=== PATIENT | female | born 1985 | race Caucasian/White ===

== ENCOUNTER 2016-09-30 15:27 | Emergency (ER) | payer OTHER ==
[2016-09-30] MEDS ORDERED: KETOROLAC 30 MG/ML VIAL (J1885) As Ordered ONE (18:52)
--- NOTE | 2016-09-30 19:40 | REPUSA ---
CLINICAL HISTORY: Abdominal pain. TECHNIQUE: Realtime sonographic images were obtained in multiple projections. COMMENTS: The liver is of normal size, parenchyma demonstrates normal echogenicity. No discrete hepatic mass is seen. There is no intra or extrahepatic biliary ductal dilatation. CBD measures 4 mm. The gallbladder is ph ysiologically distended without evidence of calculi. The gallbladder wall is not thickened and there is no pericholecystic fluid. There is no abdominal ascites. The right kidney measures 10.6 cm , free of hydronephrosis. IMPRESSION: Unremarkable study. Thank you for your kind referral of this patient.
[2016-09-30 20:46] LABS: BASO % 0.4 % (0.0-1.0); EOS # 0.2 K/mm3 (0.0-0.50); EOS % 3.7 % (0.0-3.0); LARGE UNSTAINED CELL # 0.1 K/mm3 (0.0-0.4); LYMPH # 1.8 K/mm3 (1.5-6.5); LYMPH % 33.5 % (24.0-44.0); MEAN CORPUSCULAR HEMOGLOBIN 27.7 pg (27.0-33.0); MEAN CORPUSCULAR HGB CONC 33.4 g/dl (32.0-36.5); MEAN CORPUSCULAR VOLUME 83.2 fl (80.0-96.0); MONO # 0.3 K/mm3 (0.0-0.8); MONO % 4.9 % (0.0-5.0); NEUTROPHILS % 55.5 % (36.0-66.0); PLATELET COUNT, AUTOMATED 187 k/mm3 (150-450); RED CELL DISTRIBUTION WIDTH 13.2 % (11.5-14.5); WHITE BLOOD COUNT 5.4 K/mm3 (4.0-10.0)
[2016-09-30 21:23] LABS: ALBUMIN 3.8 GM/DL (3.2-5.2); ALBUMIN/GLOBULIN RATIO 0.93 (1.00-1.93); ALKALINE PHOSPHATASE 80 U/L (45-117); ALT/SGPT 19 U/L (12-78); AMYLASE 58 U/L (25-115); ANION GAP 10 MEQ/L (8-16); AST/SGOT 15 U/L (15-37); BILIRUBIN,DIRECT < 0.1 MG/DL (0.0-0.2); BILIRUBIN,TOTAL 0.3 MG/DL (0.2-1.0); BLOOD UREA NITROGEN 11 MG/DL (7-18); CALCIUM LEVEL 9.2 MG/DL (8.5-10.1); CARBON DIOXIDE LEVEL 26 MEQ/L (21-32); CHLORIDE LEVEL 108 MEQ/L (98-107); CREATININE FOR GFR 0.97 MG/DL (0.55-1.02); GLOMERULAR FILTRATION RATE > 60.0 (>60); GLUCOSE, FASTING 68 MG/DL (70-105); POTASSIUM SERUM 3.8 MEQ/L (3.5-5.1); SODIUM LEVEL 144 MEQ/L (136-145); TOTAL PROTEIN 7.9 GM/DL (6.4-8.2)
[2016-09-30] MEDS ORDERED: GI COCKTAIL 50ML BTL(HYOSCYAMINE/MAALOX/LIDOCAINE VISCOUS)(1:3:1) As Ordered ONE (21:40)
--- NOTE | 2016-09-30 22:34 | EDDOCDS ---
Physician Documentation [facility] Name: Elida Scott Age: 31 yrs Sex: Female : 1985 Arrival Date: 09/30/2016 Time: 15:27 Bed I Private MD: NO PRIMARY PHYSICIAN, . Disposition: 09/30/16 22:11 Discharged to Home/Self Care. Impression: Upper abdominal pain, unspecified, Acute gastritis. - Condition is Stable. - Discharge Instructions: Abdominal Pain, Adult, Gastritis, Adult. - Prescriptions for Prilosec 20 mg Oral Capsule - take 1 capsule by ORAL route once daily; 10 capsule. - Medication Reconciliation, Local Pharmacy Hours form. - [facility]; When: 2 - 3 days; Reason: Recheck today's complaints, Continuance of care. - Problem is new. - Symptoms have improved. - Notes: USE MEDICATIN INSTRUTCED, FOLLOW UP WITH YOUR DOCTOR, RETURN TO THE ER IF THE SYMPTOMS WORSEN OR BECOME CONCERNING Historical: - Allergies: no known allergies; - Home Meds: 1. bupropion HCl 300 mg Oral Tb24 1 tab once daily (Last dose: 09/30/2016) 2. Zepatier 50-100 mg oral tab 1 tab once daily (Last dose: 09/30/2016) - PMHx: Hep C; - PSHx: ; Right wrist tendon repair; - Social history: Smoking status: Patient states former smoker of tobacco. No barriers to communication noted, The patient speaks fluent [place] Leonean. - Family history: Not pertinent. - : The pt / caregiver states he / she is not on anticoagulants. Home medication list is obtained from the patient. - Exposure Risk Screening:: None identified. 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 5 in. (165.10 cm) (R); Pain 6/10; 20:34 BP 112 / 65; Pulse 68; Resp 18; Temp 97.8; Pulse Ox 99% ; ajs 22:31 BP 101 / 64; Pulse 53; Resp 18; Temp 97.3; Pulse Ox 97% ; Pain 0/10; ajs 15:29 Body Mass Index 31.62 (86.18 kg, 165.10 cm) gr2 MDM: 18:28 Undress patient appropriately for examination ordered. ck7 18:28 UCG by Nursing ordered. ck7 18:28 IV Saline Lock ordered. ck7 18:28 NS 0.9% 1000 ml IV at bolus once ordered. ck7 18:28 ketorolac 30 mg IVP once ordered. ck7 18:30 Amylase Ordered. EDMS 18:30 Basic Metabolic Profile Ordered. EDMS 18:30 CBC with Diff Ordered. EDMS 18:30 Lipase Ordered. EDMS 18:30 Liver Profile Ordered. EDMS 18:30 Urinalysis Ordered. EDMS 18:30 Urine Culture Ordered. EDMS 18:30 US Gallbladder Ordered. EDMS 18:30 NOTHING BY MOUTH+DIET ordered. EDMS 18:33 Financial registration complete. ks16 18:33 [facility] Payment Agreement was scanned into [employer] and attached to record. ks16 20:34 Urinalysis Reviewed. ck7 20:34 US Gallbladder Reviewed. ck7 21:34 Basic Metabolic Profile Reviewed. ck7 21:34 CBC with Diff Reviewed. ck7 21:34 Liver Profile Reviewed. ck7 21:34 Amylase Reviewed. ck7 21:34 Lipase Reviewed. ck7 21:38 GI Cocktail - (Alum-Mag Hydroxide-Simeth 30 ml, Lidocaine 10 ml, Hyoscyamine 10 ml) PO ck7 once; Pre-mixed 50mL unit dose ordered. Point of Care Testing: Urine : 18:46 hCG Reading: Negative; Control Reading: Positive; srm Ranges: Administered Medications: 19:13 Drug: NS 0.9% 1000 ml [sodium chloride 0.9 % intravenous solution] Route: IV; Rate: kc3 bolus; Site: right hand; 19:13 Drug: ketorolac 30 mg [ketorolac 30 mg/mL (1 mL) injection solution (1 mL)] Route: IVP; kc3 Site: right hand; 21:43 Drug: GI Cocktail - (Alum-Mag Hydroxide-Simeth Suspension 225 mg-200 mg-25 mg/5 mL 30 dsf ml, Lidocaine Liquid 2 % 10 ml, Hyoscyamine Liquid 10 ml) Route: PO; Signatures: Dispatcher [employer] Buzz Wilkins, RN RN dwg Karan Montague, RPA-C RPA-Cck7 Viky ArshadRN RN af2 Evelyn Rush RN RN kc3 Anay Kelley, Reg Reg ks16 Kamilah Chin RN dsf The chart was reviewed and I authenticate all verbal orders and agree with the evaluation and treatment provided.Attachments: 18:33 [facility] Payment Agreement ks16 MTDD
--- NOTE | 2016-09-30 22:34 | EDDOCDS ---
Nurse's Notes [facility] Name: Elida Scott Age: 31 yrs Sex: Female : 1985 Arrival Date: 09/30/2016 Time: 15:27 Bed I9 / Private MD: NO PRIMARY PHYSICIAN, . Diagnosis: Upper abdominal pain, unspecified;Acute gastritis Presentation: 09/30 15:33 Presenting complaint: Patient states: RUQ pain for one week. Adult Sepsis Screening: dwg The patient does not have new or worsening altered mentation. Patient's respiratory rate is less than 22. Systolic blood pressure is greater than 100. Patient has a qSOFA score of 0- Negative Sepsis Screen. Suicide/Homicide risk assessment- the patient denies having any suicidal and/or homicidal ideations and does not present with any other emotional, behavioral or mental health complaints. Status: Patient is not a branch service specialist or dependent. Transition of care: patient was not received from another setting of care. 15:33 Acuity: GABRIELA Level 3 dwg 15:33 Method Of Arrival: Walkin/Carried/Asstd dwg Triage Assessment: 15:35 General: Appears in no apparent distress. Pain: Pain currently is 3 out of 10 on a pain dwg scale. Pt Declines HIV testing. 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 bupropion HCl 300 mg Oral Tb24 1 tab once daily (Last dose: 09/30/2016) 2. Zepatier 50-100 mg oral tab 1 tab once daily (Last dose: 09/30/2016) - PMHx: Hep C; - PSHx: ; Right wrist tendon repair; - Social history: Smoking status: Patient states former smoker of tobacco. No barriers to communication noted, The patient speaks fluent [place] Islander. - Family history: Not pertinent. - : The pt / caregiver states he / she is not on anticoagulants. Home medication list is obtained from the patient. - Exposure Risk Screening:: None identified. Screenin:14 Screening information is obtained from the patient. Fall risk: No risks identified. kc3 Assistance ADL's: requires no assistance with activities of daily living. Abuse/DV Screen: The patient / caregiver reports he/she is: not in a situation that causes fear, pain or injury. Nutritional screening: No deficits noted. Advance Directives: Currently, there is no health care proxy. home support is adequate. Assessment: 19:14 General: Appears in no apparent distress, comfortable, Behavior is appropriate for age, kc3 cooperative. Pain: Location: epigastric area. Neurological: Level of Consciousness is awake, alert, obeys commands, Oriented to person, place, time. Respiratory: Respiratory effort is even, unlabored. GI: Abdomen is flat, Bowel sounds present X 4 quads. Derm: Skin is pink, warm & dry. Musculoskeletal: Circulation, motion, and sensation intact. 20:00 General: Appears in no apparent distress, comfortable, Behavior is appropriate for age, kc3 cooperative. Pain: Location: epigastric area. Neurological: Level of Consciousness is awake, alert, obeys commands, Oriented to person, place, time. Respiratory: Respiratory effort is even, unlabored. Derm: Skin is pink, warm & dry. Musculoskeletal: Circulation, motion, and sensation intact. 21:19 General: Appears in no apparent distress, comfortable, Behavior is appropriate for age, kc3 cooperative. Neurological: Level of Consciousness is awake, alert, obeys commands, Oriented to person, place, time. Respiratory: Respiratory effort is even, unlabored. Derm: Skin is pink, warm & dry. Musculoskeletal: Circulation, motion, and sensation intact. 21:43 Adult Sepsis Screening: The patient does not have new or worsening altered mentation. dsf Patient's respiratory rate is less than 22. Systolic blood pressure is greater than 100. Patient has a qSOFA score of 0- Negative Sepsis Screen. General: Appears in no apparent distress, comfortable, Behavior is appropriate for age, cooperative. Pain: Location: epigastric area Pain currently is 3 out of 10 on a pain scale. Neurological: Level of Consciousness is awake, alert. Cardiovascular: Capillary refill < 3 seconds. Respiratory: Airway is patent Respiratory effort is even, unlabored, Respiratory pattern is regular, symmetrical. GI: Abdomen is non- distended. Derm: Skin is pink, warm & dry. Vital Signs: 15:29 BP 109 / 60; Pulse 65; Resp 18 S; Temp 98.0(O); Pulse Ox 99% on R/A; Weight 86.18 kg gr2 (R); Height 5 ft. 5 in. (165.10 cm) (R); Pain 6/10; 20:34 BP 112 / 65; Pulse 68; Resp 18; Temp 97.8; Pulse Ox 99% ; ajs 22:31 BP 101 / 64; Pulse 53; Resp 18; Temp 97.3; Pulse Ox 97% ; Pain 0/10; ajs 15:29 Body Mass Index 31.62 (86.18 kg, 165.10 cm) gr2 Vitals: 15:29 Log In Time: September 30, 2016 at 15:29. gr2 ED Course: 15:29 Patient visited by Laura Interiano. gr2 15:29 NO PRIMARY PHYSICIAN, . is Private Physician. gr2 15:29 Patient moved to Waiting gr2 15:30 Patient visited by Laura Interiano. gr2 15:30 Patient moved to Pre RCE gr2 15:33 Triage Initiated dwg 17:46 Patient moved to Triage 3 srm 18:17 Karan Montague RPA-C is PHCP. ck7 18:17 Baljinder Gatica MD is Attending Physician. ck7 18:17 Patient visited by Karan Montague RPA-C. ck7 18:33 [facility] Payment Agreement was scanned into [employer] and attached to record. ks16 18:43 Patient moved to I mdr 18:53 Patient visited by Karan Montague RPA-C. ck7 18:54 Pt greeted and oriented to ED. Patient advised of names of staff involved in care, ajs location of call doshi, wait times and NPO status. Accompanied by Friend, Patient has correct armband on for positive identification. Placed in gown. Bed in low position. Call light in reach. Side rails up X 1. 18:55 Patient visited by Elida Moses. ajs 19:13 Amylase Sent. kc3 19:13 Basic Metabolic Profile Sent. kc3 19:13 CBC with Diff Sent. kc3 19:14 Lipase Sent. kc3 19:14 Liver Profile Sent. kc3 19:15 Patient visited by Evelyn Rush RN. kc3 19:15 The patient / caregiver is instructed regarding the plan of care and ED course. kc3 19:15 Inserted saline lock: 20 gauge in right hand and blood collected. The patient tolerated kc3 the procedure well. Labs drawn. (by ED staff). Sent per order to lab. 19:19 Patient moved to Ultrasound am17 19:30 Patient moved to I am17 19:57 Patient visited by Evelyn Rush RN. kc3 20:15 US Gallbladder Returned. EDMS 20:34 Patient visited by Elida Moses. ajs 21:07 Patient name changed from Elida\S\\S\Freelove\S\ to Elida\S\ \S\Freelove. EDMS 21:20 Patient visited by Evelyn Rush RN. kc3 21:44 Patient visited by Kamilah Chin RN. dsf 22:10 [facility] is Referral Physician. ck7 22:31 Patient visited by Elida Moses. ajs 22:31 No procedures done that require assistance. af2 22:31 Discontinued IV lock intact, bleeding controlled, pressure dressing applied, No af2 redness/swelling at site. Administered Medications: 19:13 Drug: NS 0.9% 1000 ml [sodium chloride 0.9 % intravenous solution] Route: IV; Rate: kc3 bolus; Site: right hand; 19:13 Drug: ketorolac 30 mg [ketorolac 30 mg/mL (1 mL) injection solution (1 mL)] Route: IVP; kc3 Site: right hand; 21:43 Drug: GI Cocktail - (Alum-Mag Hydroxide-Simeth Suspension 225 mg-200 mg-25 mg/5 mL 30 dsf ml, Lidocaine Liquid 2 % 10 ml, Hyoscyamine Liquid 10 ml) Route: PO; Point of Care Testing: Urine : 18:46 hCG Reading: Negative; Control Reading: Positive; srm Ranges: Order Results: Lab Order: Amylase; SPEC'M 09/30/16 18:57 Test: AMYLASE; Value: 58; Range: 25-115; Units: U/L; Status: F Lab Order: Basic Metabolic Profile; SPEC'M 09/30/16 18:57 Test: GLUCOSE, FASTING; Value: 68; Range: 70-105; Abnormal: Below low normal; Units: MG/DL; Status: F Test: BLOOD UREA NITROGEN; Value: 11; Range: 7-18; Units: MG/DL; Status: F Test: CREATININE FOR GFR; Value: 0.97; Range: 0.55-1.02; Units: MG/DL; Status: F Test: GLOMERULAR FILTRATION RATE; Value: > 60.0; Range: >60; Status: F Test: SODIUM LEVEL; Value: 144; Range: 136-145; Units: MEQ/L; Status: F Test: POTASSIUM SERUM; Value: 3.8; Range: 3.5-5.1; Units: MEQ/L; Status: F Test: CHLORIDE LEVEL; Value: 108; Range: 98-107; Abnormal: Above high normal; Units: MEQ/L; Status: F Test: CARBON DIOXIDE LEVEL; Value: 26; Range: 21-32; Units: MEQ/L; Status: F Test: ANION GAP; Value: 10; Range: 8-16; Units: MEQ/L; Status: F Test: CALCIUM LEVEL; Value: 9.2; Range: 8.5-10.1; Units: MG/DL; Status: F Test Note: ; Units are mL/min/1.73 m2 Chronic Kidney Disease Staging per NKF: Stage I & II GFR >=60 Normal to Mildly Decreased Stage III GFR 30-59 Moderately Decreased Stage IV GFR 15-29 Severely Decreased Stage V GFR <15 Very Little GFR Left ESRD GFR <15 on GEAR CHANGER Lab Order: CBC with Diff; SPEC'M 09/30/16 18:57 Test: WHITE BLOOD COUNT; Value: 5.4; Range: 4.0-10.0; Units: K/mm3; Status: F Test: RED BLOOD COUNT; Value: 4.79; Range: 4.00-5.40; Units: M/mm3; Status: F Test: HEMOGLOBIN; Value: 13.3; Range: 12.0-16.0; Units: g/dl; Status: F Test: HEMATOCRIT; Value: 39.8; Range: 36.0-47.0; Units: %; Status: F Test: MEAN CORPUSCULAR VOLUME; Value: 83.2; Range: 80.0-96.0; Units: fl; Status: F Test: MEAN CORPUSCULAR HEMOGLOBIN; Value: 27.7; Range: 27.0-33.0; Units: pg; Status: F Test: MEAN CORPUSCULAR HGB CONC; Value: 33.4; Range: 32.0-36.5; Units: g/dl; Status: F Test: RED CELL DISTRIBUTION WIDTH; Value: 13.2; Range: 11.5-14.5; Units: %; Status: F Test: PLATELET COUNT, AUTOMATED; Value: 187; Range: 150-450; Units: k/mm3; Status: F Test: NEUTROPHILS %; Value: 55.5; Range: 36.0-66.0; Units: %; Status: F Test: LYMPH %; Value: 33.5; Range: 24.0-44.0; Units: %; Status: F Test: MONO %; Value: 4.9; Range: 0.0-5.0; Units: %; Status: F Test: EOS %; Value: 3.7; Range: 0.0-3.0; Abnormal: Above high normal; Units: %; Status: F Test: BASO %; Value: 0.4; Range: 0.0-1.0; Units: %; Status: F Test: LARGE UNSTAINED CELL %; Value: 2.0; Range: 0.0-4.0; Units: %; Status: F Test: NEUTROPHILS #; Value: 3.0; Range: 1.8-7.7; Units: K/mm3; Status: F Test: LYMPH #; Value: 1.8; Range: 1.5-6.5; Units: K/mm3; Status: F Test: MONO #; Value: 0.3; Range: 0.0-0.8; Units: K/mm3; Status: F Test: EOS #; Value: 0.2; Range: 0.0-0.50; Units: K/mm3; Status: F Test: BASO #; Value: 0.0; Range: 0.0-0.2; Units: K/mm3; Status: F Test: LARGE UNSTAINED CELL #; Value: 0.1; Range: 0.0-0.4; Units: K/mm3; Status: F Lab Order: Lipase; SPEC'M 09/30/16 18:57 Test: LIPASE; Value: 154; Range: 73-393; Units: U/L; Status: F Lab Order: Liver Profile; SPEC'M 09/30/16 18:57 Test: AST/SGOT; Value: 15; Range: 15-37; Units: U/L; Status: F Test: ALT/SGPT; Value: 19; Range: 12-78; Units: U/L; Status: F Test: ALKALINE PHOSPHATASE; Value: 80; Range: 45-117; Units: U/L; Status: F Test: BILIRUBIN,TOTAL; Value: 0.3; Range: 0.2-1.0; Units: MG/DL; Status: F Test: BILIRUBIN,DIRECT; Value: < 0.1; Range: 0.0-0.2; Units: MG/DL; Status: F Test: TOTAL PROTEIN; Value: 7.9; Range: 6.4-8.2; Units: GM/DL; Status: F Test: ALBUMIN; Value: 3.8; Range: 3.2-5.2; Units: GM/DL; Status: F Test: ALBUMIN/GLOBULIN RATIO; Value: 0.93; Range: 1.00-1.93; Abnormal: Below low normal; Status: F Lab Order: Urinalysis; SPEC'M 09/30/16 18:41 Test: APPEARANCE, URINE; Value: CLEAR; Range: CLEAR; Status: F Test: COLOR, URINE; Value: YELLOW; Range: YELLOW; Status: F Test: PH,URINE; Value: 5.0; Range: 5.0-9.0; Units: UNITS; Status: F Test: SPECIFIC GRAVITY URINE AUTO; Value: 1.020; Range: 1.002-1.035; Status: F Test: PROTEIN, URINE AUTO; Value: NEGATIVE; Range: NEGATIVE; Units: mg/dL; Status: F Test: GLUCOSE, URINE (UA) AUTO; Value: NEGATIVE; Range: NEGATIVE; Units: mg/dL; Status: F Test: KETONE, URINE AUTO; Value: NEGATIVE; Range: NEGATIVE; Units: mg/dL; Status: F Test: UROBILINOGEN, URINE AUTO; Value: 0.2; Range: 0.0-2.0; Units: mg/dL; Status: F Test: BILIRUBIN, URINE AUTO; Value: NEGATIVE; Range: NEGATIVE; Status: F Test: NITRITE, URINE AUTO; Value: NEGATIVE; Range: NEGATIVE; Status: F Test: LEUKOCYTE ESTERASE, URINE AUTO; Value: NEGATIVE; Range: NEGATIVE; Status: F Test: BLOOD, URINE BLOOD; Value: NEGATIVE; Range: NEGATIVE; Status: F Test: WBC, URINE AUTO; Value: 1; Range: 0-3; Units: /HPF; Status: F Test: RBC, URINE AUTO; Value: 3; Range: 0-3; Units: /HPF; Status: F Test: BACTERIA, URINE AUTO; Value: NEGATIVE; Range: NEGATIVE; Status: F Test: SQUAMOUS EPITHELIAL CELL UR AU; Value: 1; Range: 0-6; Units: /HPF; Status: F Test: MUCUS, URINE; Value: SMALL; Range: NEGATIVE; Status: F Test: HYALINE CAST, URINE AUTO; Value: 0; Range: 0-1; Units: /LPF; Status: F Radiology Order: US Gallbladder Test: US Gallbladder REASON FOR EXAMINATION: Biliary Colic; ; CLINICAL HISTORY: Abdominal pain.; TECHNIQUE: Realtime sonographic images were obtained in multiple projections.; COMMENTS:; The liver is of normal size, parenchyma demonstrates normal echogenicity. No discrete hepatic mass is; seen.; There is no intra or extrahepatic biliary ductal dilatation. CBD measures 4 mm. The gallbladder is ph; ysiologically distended without evidence of calculi. The gallbladder wall is not thickened and there; is no pericholecystic fluid. There is no abdominal ascites.; The right kidney measures 10.6 cm , free of hydronephrosis.; IMPRESSION:; Unremarkable study.; Thank you for your kind referral of this patient.; ; Outcome: 22:11 Discharge ordered by Provider. ck7 22:31 Discharge Assessment: Patient awake, alert and oriented x 3. No cognitive and/or af2 functional deficits noted. Patient verbalized understanding of disposition instructions. patient administered narcotics - no. The following High Risk Discharge criteria are identified: None. Discharged to home ambulatory. Condition: stable. Discharge instructions given to patient, Instructed on discharge instructions, follow up and referral plans. medication usage, Demonstrated understanding of instructions, medications, Pt was receptive of discharge instructions/ teaching. Ultrasound Study completed. Property :Personal belongings accompany Pt. 22:33 Patient left the ED. af2 Signatures: Dispatcher [employer] EDBuzz Izaguirre RN RN dwg Michelson, Staci, RN RN srm Fuller, Desiree, RN RN dsf Slate, Amanda ajs Kwaczala, Christopher, JADYN-C RPA-Cck7 Laura Interiano gr2 Shelley Foster am17 Viky Arshad,RN RN af2 Michael Brewer, VACUUM APPLICATOR OPERATOR VACUUM APPLICATOR OPERATOR mdr Evelyn Rush,STEPHANY RN kc3 Anay Kelley, Reg Reg ks16 MTDD
--- NOTE | 2016-10-02 23:34 | EDDOCDS ---
Physician Documentation [facility] Name: Elida Scott Age: 31 yrs Sex: Female : 1985 Arrival Date: 09/30/2016 Time: 15:27 Bed I Private MD: NO PRIMARY PHYSICIAN, . Disposition: 09/30/16 22:11 Discharged to Home/Self Care. Impression: Upper abdominal pain, unspecified, Acute gastritis. - Condition is Stable. - Discharge Instructions: Abdominal Pain, Adult, Gastritis, Adult. - Prescriptions for Prilosec 20 mg Oral Capsule - take 1 capsule by ORAL route once daily; 10 capsule. - Medication Reconciliation, Local Pharmacy Hours form. - [facility]; When: 2 - 3 days; Reason: Recheck today's complaints, Continuance of care. - Problem is new. - Symptoms have improved. - Notes: USE MEDICATIN INSTRUTCED, FOLLOW UP WITH YOUR DOCTOR, RETURN TO THE ER IF THE SYMPTOMS WORSEN OR BECOME CONCERNING Historical: - Allergies: no known allergies; - Home Meds: 1. bupropion HCl 300 mg Oral Tb24 1 tab once daily (Last dose: 09/30/2016) 2. Zepatier 50-100 mg oral tab 1 tab once daily (Last dose: 09/30/2016) - PMHx: Hep C; - PSHx: ; Right wrist tendon repair; - Social history: Smoking status: Patient states former smoker of tobacco. No barriers to communication noted, The patient speaks fluent Ukrainian. - Family history: Not pertinent. - : The pt / caregiver states he / she is not on anticoagulants. Home medication list is obtained from the patient. - Exposure Risk Screening:: None identified. 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 5 in. (165.10 cm) (R); Pain 6/10; 20:34 BP 112 / 65; Pulse 68; Resp 18; Temp 97.8; Pulse Ox 99% ; ajs 22:31 BP 101 / 64; Pulse 53; Resp 18; Temp 97.3; Pulse Ox 97% ; Pain 0/10; ajs 15:29 Body Mass Index 31.62 (86.18 kg, 165.10 cm) gr2 MDM: 18:28 Undress patient appropriately for examination ordered. ck7 18:28 UCG by Nursing ordered. ck7 18:28 IV Saline Lock ordered. ck7 18:28 NS 0.9% 1000 ml IV at bolus once ordered. ck7 18:28 ketorolac 30 mg IVP once ordered. ck7 18:30 Amylase Ordered. EDMS 18:30 Basic Metabolic Profile Ordered. EDMS 18:30 CBC with Diff Ordered. EDMS 18:30 Lipase Ordered. EDMS 18:30 Liver Profile Ordered. EDMS 18:30 Urinalysis Ordered. EDMS 18:30 Urine Culture Ordered. EDMS 18:30 US Gallbladder Ordered. EDMS 18:30 NOTHING BY MOUTH+DIET ordered. EDMS 18:33 Financial registration complete. ks16 18:33 [facility] Payment Agreement was scanned into [employer] and attached to record. ks16 20:34 Urinalysis Reviewed. ck7 20:34 US Gallbladder Reviewed. ck7 21:34 Basic Metabolic Profile Reviewed. ck7 21:34 CBC with Diff Reviewed. ck7 21:34 Liver Profile Reviewed. ck7 21:34 Amylase Reviewed. ck7 21:34 Lipase Reviewed. ck7 21:38 GI Cocktail - (Alum-Mag Hydroxide-Simeth 30 ml, Lidocaine 10 ml, Hyoscyamine 10 ml) PO ck7 once; Pre-mixed 50mL unit dose ordered. 10/01 10:07 T-Sheet-- Draft Copy was scanned into [employer] and attached to record. Point of Care Testing: Urine : 09/30 18:46 hCG Reading: Negative; Control Reading: Positive; srm Ranges: Administered Medications: 19:13 Drug: NS 0.9% 1000 ml [sodium chloride 0.9 % intravenous solution] Route: IV; Rate: kc3 bolus; Site: right hand; 19:13 Drug: ketorolac 30 mg [ketorolac 30 mg/mL (1 mL) injection solution (1 mL)] Route: IVP; kc3 Site: right hand; 21:43 Drug: GI Cocktail - (Alum-Mag Hydroxide-Simeth Suspension 225 mg-200 mg-25 mg/5 mL 30 dsf ml, Lidocaine Liquid 2 % 10 ml, Hyoscyamine Liquid 10 ml) Route: PO; Signatures: Dispatcher [employer] Buzz Wilkins, RN RN dwg Anamaria Vargas, Reg Reg gb Karan Montague, RPA-C RPA-Cck7 Viky ArshadRN RN af2 Evelyn Rush,RN RN kc3 Anay Kelley, Reg Reg ks16 Kamilah Chin RN dsf The chart was reviewed and I authenticate all verbal orders and agree with the evaluation and treatment provided.Attachments: 18:33 [facility] Payment Agreement ks16 10/01 10:07 T-Sheet-- Draft Copy gb Chart Complete MTDD
--- NOTE | 2016-10-02 23:34 | EDDOCDS ---
Physician Documentation [facility] Name: Elida Scott Age: 31 yrs Sex: Female : 1985 Arrival Date: 09/30/2016 Time: 15:27 Bed I Private MD: NO PRIMARY PHYSICIAN, . Disposition: 09/30/16 22:11 Discharged to Home/Self Care. Impression: Upper abdominal pain, unspecified, Acute gastritis. - Condition is Stable. - Discharge Instructions: Abdominal Pain, Adult, Gastritis, Adult. - Prescriptions for Prilosec 20 mg Oral Capsule - take 1 capsule by ORAL route once daily; 10 capsule. - Medication Reconciliation, Local Pharmacy Hours form. - [facility] up: [facility]; When: 2 - 3 days; Reason: Recheck today's complaints, Continuance of care. - Problem is new. - Symptoms have improved. - Notes: USE MEDICATIN INSTRUTCED, FOLLOW UP WITH YOUR DOCTOR, RETURN TO THE ER IF THE SYMPTOMS WORSEN OR BECOME CONCERNING Historical: - Allergies: no known allergies; - Home Meds: 1. bupropion HCl 300 mg Oral Tb24 1 tab once daily (Last dose: 09/30/2016) 2. Zepatier 50-100 mg oral tab 1 tab once daily (Last dose: 09/30/2016) - PMHx: Hep C; - PSHx: ; Right wrist tendon repair; - Social history: Smoking status: Patient states former smoker of tobacco. No barriers to communication noted, The patient speaks fluent Thai. - Family history: Not pertinent. - : The pt / caregiver states he / she is not on anticoagulants. Home medication list is obtained from the patient. - Exposure Risk Screening:: None identified. COMPLIANCE ADMINISTRATOR: 09/30 15:35 LMP 09/29/2016 [facility] Vital Signs: 15:29 BP 109 / 60; Pulse 65; Resp 18 S; Temp 98.0(O); Pulse Ox 99% on R/A; Weight 86.18 kg / gr2 189.99 lbs (R); Height 5 ft. 5 in. (165.10 cm) (R); Pain 6/10; 20:34 BP 112 / 65; Pulse 68; Resp 18; Temp 97.8; Pulse Ox 99% ; ajs 22:31 BP 101 / 64; Pulse 53; Resp 18; Temp 97.3; Pulse Ox 97% ; Pain 0/10; ajs 15:29 Body Mass Index 31.62 (86.18 kg, 165.10 cm) gr2 MDM: 18:28 Undress patient appropriately for examination ordered. ck7 18:28 UCG by Nursing ordered. ck7 18:28 IV Saline Lock ordered. ck7 18:28 NS 0.9% 1000 ml IV at bolus once ordered. ck7 18:28 ketorolac 30 mg IVP once ordered. ck7 18:30 Amylase Ordered. EDMS 18:30 Basic Metabolic Profile Ordered. EDMS 18:30 CBC with Diff Ordered. EDMS 18:30 Lipase Ordered. EDMS 18:30 Liver Profile Ordered. EDMS 18:30 Urinalysis Ordered. EDMS 18:30 Urine Culture Ordered. EDMS 18:30 US Gallbladder Ordered. EDMS 18:30 NOTHING BY MOUTH+DIET ordered. EDMS 18:33 Financial registration complete. ks16 18:33 [facility] Payment Agreement was scanned into [employer] and attached to record. ks16 20:34 Urinalysis Reviewed. ck7 20:34 US Gallbladder Reviewed. ck7 21:34 Basic Metabolic Profile Reviewed. ck7 21:34 CBC with Diff Reviewed. ck7 21:34 Liver Profile Reviewed. ck7 21:34 Amylase Reviewed. ck7 21:34 Lipase Reviewed. ck7 21:38 GI Cocktail - (Alum-Mag Hydroxide-Simeth 30 ml, Lidocaine 10 ml, Hyoscyamine 10 ml) PO ck7 once; Pre-mixed 50mL unit dose ordered. 10/01 10:07 T-Sheet-- Draft Copy was scanned into [employer] and attached to record. Point of Care Testing: Urine : 09/30 18:46 hCG Reading: Negative; Control Reading: Positive; srm Ranges: Administered Medications: 19:13 Drug: NS 0.9% 1000 ml [sodium chloride 0.9 % intravenous solution] Route: IV; Rate: kc3 bolus; Site: right hand; 19:13 Drug: ketorolac 30 mg [ketorolac 30 mg/mL (1 mL) injection solution (1 mL)] Route: IVP; kc3 Site: right hand; 21:43 Drug: GI Cocktail - (Alum-Mag Hydroxide-Simeth Suspension 225 mg-200 mg-25 mg/5 mL 30 dsf ml, Lidocaine Liquid 2 % 10 ml, Hyoscyamine Liquid 10 ml) Route: PO; Signatures: Dispatcher [employer] Buzz Wilkins, RN RN dwg Anamaria Vargas, Reg Reg gb Karan Montague, RPA-C RPA-Cck7 Viky ArshadRN RN af2 Evelyn Rush,RN RN kc3 Anay Kelley, Reg Reg ks16 Kamilah Chin RN dsf The chart was reviewed and I authenticate all verbal orders and agree with the evaluation and treatment provided.Attachments: 18:33 [facility] Payment Agreement [email or web address] 10/01 10:07 T-Sheet-- Draft Copy gb Chart Complete MTDD
--- NOTE | 2016-10-02 23:34 | EDDOCDS ---
Nurse's Notes [facility] Name: Elida Scott Age: 31 yrs Sex: Female : 1985 Arrival Date: 09/30/2016 Time: 15:27 Bed I9 / Private MD: NO PRIMARY PHYSICIAN, . Diagnosis: Upper abdominal pain, unspecified;Acute gastritis Presentation: 09/30 15:33 Presenting complaint: Patient states: RUQ pain for one week. Adult Sepsis Screening: dwg The patient does not have new or worsening altered mentation. Patient's respiratory rate is less than 22. Systolic blood pressure is greater than 100. Patient has a qSOFA score of 0- Negative Sepsis Screen. Suicide/Homicide risk assessment- the patient denies having any suicidal and/or homicidal ideations and does not present with any other emotional, behavioral or mental health complaints. Status: Patient is not a resident services director or dependent. Transition of care: patient was not received from another setting of care. 15:33 Acuity: GABRIELA Level 3 dwg 15:33 Method Of Arrival: Walkin/Carried/Asstd dwg Triage Assessment: 15:35 General: Appears in no apparent distress. Pain: Pain currently is 3 out of 10 on a pain dwg scale. Pt Declines HIV testing. RETREAD SUPERVISOR: 15:35 LMP 09/29/2016 dwg Historical: - Allergies: no known allergies; - Home Meds: 1. bupropion HCl 300 mg Oral Tb24 1 tab once daily (Last dose: 09/30/2016) 2. Zepatier 50-100 mg oral tab 1 tab once daily (Last dose: 09/30/2016) - PMHx: Hep C; - PSHx: ; Right wrist tendon repair; - Social history: Smoking status: Patient states former smoker of tobacco. No barriers to communication noted, The patient speaks fluent Wallisian. - Family history: Not pertinent. - : The pt / caregiver states he / she is not on anticoagulants. Home medication list is obtained from the patient. - Exposure Risk Screening:: None identified. Screenin:14 Screening information is obtained from the patient. Fall risk: No risks identified. kc3 Assistance ADL's: requires no assistance with activities of daily living. Abuse/DV Screen: The patient / caregiver reports he/she is: not in a situation that causes fear, pain or injury. Nutritional screening: No deficits noted. Advance Directives: Currently, there is no health care proxy. home support is adequate. Assessment: 19:14 General: Appears in no apparent distress, comfortable, Behavior is appropriate for age, kc3 cooperative. Pain: Location: epigastric area. Neurological: Level of Consciousness is awake, alert, obeys commands, Oriented to person, place, time. Respiratory: Respiratory effort is even, unlabored. GI: Abdomen is flat, Bowel sounds present X 4 quads. Derm: Skin is pink, warm & dry. Musculoskeletal: Circulation, motion, and sensation intact. 20:00 General: Appears in no apparent distress, comfortable, Behavior is appropriate for age, kc3 cooperative. Pain: Location: epigastric area. Neurological: Level of Consciousness is awake, alert, obeys commands, Oriented to person, place, time. Respiratory: Respiratory effort is even, unlabored. Derm: Skin is pink, warm & dry. Musculoskeletal: Circulation, motion, and sensation intact. 21:19 General: Appears in no apparent distress, comfortable, Behavior is appropriate for age, kc3 cooperative. Neurological: Level of Consciousness is awake, alert, obeys commands, Oriented to person, place, time. Respiratory: Respiratory effort is even, unlabored. Derm: Skin is pink, warm & dry. Musculoskeletal: Circulation, motion, and sensation intact. 21:43 Adult Sepsis Screening: The patient does not have new or worsening altered mentation. dsf Patient's respiratory rate is less than 22. Systolic blood pressure is greater than 100. Patient has a qSOFA score of 0- Negative Sepsis Screen. General: Appears in no apparent distress, comfortable, Behavior is appropriate for age, cooperative. Pain: Location: epigastric area Pain currently is 3 out of 10 on a pain scale. Neurological: Level of Consciousness is awake, alert. Cardiovascular: Capillary refill < 3 seconds. Respiratory: Airway is patent Respiratory effort is even, unlabored, Respiratory pattern is regular, symmetrical. GI: Abdomen is non- distended. Derm: Skin is pink, warm & dry. Vital Signs: 15:29 BP 109 / 60; Pulse 65; Resp 18 S; Temp 98.0(O); Pulse Ox 99% on R/A; Weight 86.18 kg gr2 (R); Height 5 ft. 5 in. (165.10 cm) (R); Pain 6/10; 20:34 BP 112 / 65; Pulse 68; Resp 18; Temp 97.8; Pulse Ox 99% ; ajs 22:31 BP 101 / 64; Pulse 53; Resp 18; Temp 97.3; Pulse Ox 97% ; Pain 0/10; ajs 15:29 Body Mass Index 31.62 (86.18 kg, 165.10 cm) gr2 Vitals: 15:29 Log In Time: September 30, 2016 at 15:29. gr2 ED Course: 15:29 Patient visited by Laura Interiano. gr2 15:29 NO PRIMARY PHYSICIAN, . is Private Physician. gr2 15:29 Patient moved to Waiting gr2 15:30 Patient visited by Laura Interiano. gr2 15:30 Patient moved to Pre RCE gr2 15:33 Triage Initiated dwg 17:46 Patient moved to Triage 3 srm 18:17 Karan Montague RPA-C is PHCP. ck7 18:17 Baljinder Gatica MD is Attending Physician. ck7 18:17 Patient visited by Karan Montague RPA-C. ck7 18:33 [facility] Payment Agreement was scanned into [employer] and attached to record. ks16 18:43 Patient moved to I mdr 18:53 Patient visited by Karan Montague RPA-C. ck7 18:54 Pt greeted and oriented to ED. Patient advised of names of staff involved in care, ajs location of call doshi, wait times and NPO status. Accompanied by Friend, Patient has correct armband on for positive identification. Placed in gown. Bed in low position. Call light in reach. Side rails up X 1. 18:55 Patient visited by Elida Moses. ajs 19:13 Amylase Sent. kc3 19:13 Basic Metabolic Profile Sent. kc3 19:13 CBC with Diff Sent. kc3 19:14 Lipase Sent. kc3 19:14 Liver Profile Sent. kc3 19:15 Patient visited by Evelyn Rush RN. kc3 19:15 The patient / caregiver is instructed regarding the plan of care and ED course. kc3 19:15 Inserted saline lock: 20 gauge in right hand and blood collected. The patient tolerated kc3 the procedure well. Labs drawn. (by ED staff). Sent per order to lab. 19:19 Patient moved to Ultrasound am17 19:30 Patient moved to I am17 19:57 Patient visited by Evelyn Rush RN. kc3 20:15 US Gallbladder Returned. EDMS 20:34 Patient visited by Elida Moses. ajs 21:07 Patient name changed from Elida\S\\S\Freelove\S\ to Elida\S\ \S\Freelove. EDMS 21:20 Patient visited by Evelyn Rush RN. kc3 21:44 Patient visited by Kamilah Chin RN. dsf 22:10 [facility] is Referral Physician. ck7 22:31 Patient visited by Elida Moses. ajs 22:31 No procedures done that require assistance. af2 22:31 Discontinued IV lock intact, bleeding controlled, pressure dressing applied, No af2 redness/swelling at site. 10/01 10:07 T-Sheet-- Draft Copy was scanned into [employer] and attached to record. gb Administered Medications: 09/30 19:13 Drug: NS 0.9% 1000 ml [sodium chloride 0.9 % intravenous solution] Route: IV; Rate: kc3 bolus; Site: right hand; 19:13 Drug: ketorolac 30 mg [ketorolac 30 mg/mL (1 mL) injection solution (1 mL)] Route: IVP; kc3 Site: right hand; 21:43 Drug: GI Cocktail - (Alum-Mag Hydroxide-Simeth Suspension 225 mg-200 mg-25 mg/5 mL 30 dsf ml, Lidocaine Liquid 2 % 10 ml, Hyoscyamine Liquid 10 ml) Route: PO; Point of Care Testing: Urine : 18:46 hCG Reading: Negative; Control Reading: Positive; srm Ranges: Order Results: Lab Order: Amylase; SPEC'M 09/30/16 18:57 Test: AMYLASE; Value: 58; Range: 25-115; Units: U/L; Status: F Lab Order: Basic Metabolic Profile; SPEC'M 09/30/16 18:57 Test: GLUCOSE, FASTING; Value: 68; Range: 70-105; Abnormal: Below low normal; Units: MG/DL; Status: F Test: BLOOD UREA NITROGEN; Value: 11; Range: 7-18; Units: MG/DL; Status: F Test: CREATININE FOR GFR; Value: 0.97; Range: 0.55-1.02; Units: MG/DL; Status: F Test: GLOMERULAR FILTRATION RATE; Value: > 60.0; Range: >60; Status: F Test: SODIUM LEVEL; Value: 144; Range: 136-145; Units: MEQ/L; Status: F Test: POTASSIUM SERUM; Value: 3.8; Range: 3.5-5.1; Units: MEQ/L; Status: F Test: CHLORIDE LEVEL; Value: 108; Range: 98-107; Abnormal: Above high normal; Units: MEQ/L; Status: F Test: CARBON DIOXIDE LEVEL; Value: 26; Range: 21-32; Units: MEQ/L; Status: F Test: ANION GAP; Value: 10; Range: 8-16; Units: MEQ/L; Status: F Test: CALCIUM LEVEL; Value: 9.2; Range: 8.5-10.1; Units: MG/DL; Status: F Test Note: ; Units are mL/min/1.73 m2 Chronic Kidney Disease Staging per NKF: Stage I & II GFR >=60 Normal to Mildly Decreased Stage III GFR 30-59 Moderately Decreased Stage IV GFR 15-29 Severely Decreased Stage V GFR <15 Very Little GFR Left ESRD GFR <15 on MAINTENANCE TECHNICIAN 2ND SHIFT Lab Order: CBC with Diff; SPEC'M 09/30/16 18:57 Test: WHITE BLOOD COUNT; Value: 5.4; Range: 4.0-10.0; Units: K/mm3; Status: F Test: RED BLOOD COUNT; Value: 4.79; Range: 4.00-5.40; Units: M/mm3; Status: F Test: HEMOGLOBIN; Value: 13.3; Range: 12.0-16.0; Units: g/dl; Status: F Test: HEMATOCRIT; Value: 39.8; Range: 36.0-47.0; Units: %; Status: F Test: MEAN CORPUSCULAR VOLUME; Value: 83.2; Range: 80.0-96.0; Units: fl; Status: F Test: MEAN CORPUSCULAR HEMOGLOBIN; Value: 27.7; Range: 27.0-33.0; Units: pg; Status: F Test: MEAN CORPUSCULAR HGB CONC; Value: 33.4; Range: 32.0-36.5; Units: g/dl; Status: F Test: RED CELL DISTRIBUTION WIDTH; Value: 13.2; Range: 11.5-14.5; Units: %; Status: F Test: PLATELET COUNT, AUTOMATED; Value: 187; Range: 150-450; Units: k/mm3; Status: F Test: NEUTROPHILS %; Value: 55.5; Range: 36.0-66.0; Units: %; Status: F Test: LYMPH %; Value: 33.5; Range: 24.0-44.0; Units: %; Status: F Test: MONO %; Value: 4.9; Range: 0.0-5.0; Units: %; Status: F Test: EOS %; Value: 3.7; Range: 0.0-3.0; Abnormal: Above high normal; Units: %; Status: F Test: BASO %; Value: 0.4; Range: 0.0-1.0; Units: %; Status: F Test: LARGE UNSTAINED CELL %; Value: 2.0; Range: 0.0-4.0; Units: %; Status: F Test: NEUTROPHILS #; Value: 3.0; Range: 1.8-7.7; Units: K/mm3; Status: F Test: LYMPH #; Value: 1.8; Range: 1.5-6.5; Units: K/mm3; Status: F Test: MONO #; Value: 0.3; Range: 0.0-0.8; Units: K/mm3; Status: F Test: EOS #; Value: 0.2; Range: 0.0-0.50; Units: K/mm3; Status: F Test: BASO #; Value: 0.0; Range: 0.0-0.2; Units: K/mm3; Status: F Test: LARGE UNSTAINED CELL #; Value: 0.1; Range: 0.0-0.4; Units: K/mm3; Status: F Lab Order: Lipase; SPEC'M 09/30/16 18:57 Test: LIPASE; Value: 154; Range: 73-393; Units: U/L; Status: F Lab Order: Liver Profile; SPEC'M 09/30/16 18:57 Test: AST/SGOT; Value: 15; Range: 15-37; Units: U/L; Status: F Test: ALT/SGPT; Value: 19; Range: 12-78; Units: U/L; Status: F Test: ALKALINE PHOSPHATASE; Value: 80; Range: 45-117; Units: U/L; Status: F Test: BILIRUBIN,TOTAL; Value: 0.3; Range: 0.2-1.0; Units: MG/DL; Status: F Test: BILIRUBIN,DIRECT; Value: < 0.1; Range: 0.0-0.2; Units: MG/DL; Status: F Test: TOTAL PROTEIN; Value: 7.9; Range: 6.4-8.2; Units: GM/DL; Status: F Test: ALBUMIN; Value: 3.8; Range: 3.2-5.2; Units: GM/DL; Status: F Test: ALBUMIN/GLOBULIN RATIO; Value: 0.93; Range: 1.00-1.93; Abnormal: Below low normal; Status: F Lab Order: Urinalysis; SPEC'M 09/30/16 18:41 Test: APPEARANCE, URINE; Value: CLEAR; Range: CLEAR; Status: F Test: COLOR, URINE; Value: YELLOW; Range: YELLOW; Status: F Test: PH,URINE; Value: 5.0; Range: 5.0-9.0; Units: UNITS; Status: F Test: SPECIFIC GRAVITY URINE AUTO; Value: 1.020; Range: 1.002-1.035; Status: F Test: PROTEIN, URINE AUTO; Value: NEGATIVE; Range: NEGATIVE; Units: mg/dL; Status: F Test: GLUCOSE, URINE (UA) AUTO; Value: NEGATIVE; Range: NEGATIVE; Units: mg/dL; Status: F Test: KETONE, URINE AUTO; Value: NEGATIVE; Range: NEGATIVE; Units: mg/dL; Status: F Test: UROBILINOGEN, URINE AUTO; Value: 0.2; Range: 0.0-2.0; Units: mg/dL; Status: F Test: BILIRUBIN, URINE AUTO; Value: NEGATIVE; Range: NEGATIVE; Status: F Test: NITRITE, URINE AUTO; Value: NEGATIVE; Range: NEGATIVE; Status: F Test: LEUKOCYTE ESTERASE, URINE AUTO; Value: NEGATIVE; Range: NEGATIVE; Status: F Test: BLOOD, URINE BLOOD; Value: NEGATIVE; Range: NEGATIVE; Status: F Test: WBC, URINE AUTO; Value: 1; Range: 0-3; Units: /HPF; Status: F Test: RBC, URINE AUTO; Value: 3; Range: 0-3; Units: /HPF; Status: F Test: BACTERIA, URINE AUTO; Value: NEGATIVE; Range: NEGATIVE; Status: F Test: SQUAMOUS EPITHELIAL CELL UR AU; Value: 1; Range: 0-6; Units: /HPF; Status: F Test: MUCUS, URINE; Value: SMALL; Range: NEGATIVE; Status: F Test: HYALINE CAST, URINE AUTO; Value: 0; Range: 0-1; Units: /LPF; Status: F Lab Order: Urine Culture; SPEC'M 09/30/16 18:41 Test: URINE CULTURE; Value: URINE CULTURE RESULT; Status: F Test: URINE CULTURE; Value: NO GROWTH CLINICAL SIGNIFICANCE 2 OR MORE ORGANISMS; Status: F Radiology Order: US Gallbladder Test: US Gallbladder REASON FOR EXAMINATION: Biliary Colic; ; CLINICAL HISTORY: Abdominal pain.; TECHNIQUE: Realtime sonographic images were obtained in multiple projections.; COMMENTS:; The liver is of normal size, parenchyma demonstrates normal echogenicity. No discrete hepatic mass is; seen.; There is no intra or extrahepatic biliary ductal dilatation. CBD measures 4 mm. The gallbladder is ph; ysiologically distended without evidence of calculi. The gallbladder wall is not thickened and there; is no pericholecystic fluid. There is no abdominal ascites.; The right kidney measures 10.6 cm , free of hydronephrosis.; IMPRESSION:; Unremarkable study.; Thank you for your kind referral of this patient.; ; Outcome: 22:11 Discharge ordered by Provider. ck7 22:31 Discharge Assessment: Patient awake, alert and oriented x 3. No cognitive and/or af2 functional deficits noted. Patient verbalized understanding of disposition instructions. patient administered narcotics - no. The following High Risk Discharge criteria are identified: None. Discharged to home ambulatory. Condition: stable. Discharge instructions given to patient, Instructed on discharge instructions, follow up and referral plans. medication usage, Demonstrated understanding of instructions, medications, Pt was receptive of discharge instructions/ teaching. Ultrasound Study completed. Property :Personal belongings accompany Pt. 22:33 Patient left the ED. af2 Signatures: Dispatcher [employer] EDMS Buzz Espitia, RN RN rubéng Ginger Benito, RN RN [facility] Anamaria Vargas, Reg Reg gb Elsy,Kamilah,RN RN dsf Elida Moses Christopher, RPA-C RPA-Cck7 Laura Interiano gr2 Shelley Foster am17 Viky ArshadRN RN af2 Michael Brewer, JESSENIA SUPERVISOR LOADING mdr Evelyn Rush,RN RN jose3 Anay Kelley, Reg Reg ks16 Chart Complete MTDD
== END 2016-09-30 22:33 | disposition home or self-care (01) ==
LOC: M ED 15:27
DX: R10.10 Upper abdominal pain, unspecified (principal); K29.70 Gastritis, unspecified, without bleeding; Z86.19 Personal history of other infectious and parasitic diseases; Z87.891 Personal history of nicotine dependence; Z79.899 Other long term (current) drug therapy

== ENCOUNTER → 2016-09-30 | Outpatient (REF) | payer OTHER ==
[2016-09-30 16:24] LABS: ALBUMIN 3.6 GM/DL (3.2-5.2); ALBUMIN/GLOBULIN RATIO 1.06 (1.00-1.93); ALKALINE PHOSPHATASE 69 U/L (45-117); ALT/SGPT 16 U/L (12-78); AST/SGOT 10 U/L (15-37); BILIRUBIN,DIRECT < 0.1 MG/DL (0.0-0.2); BILIRUBIN,TOTAL 0.3 MG/DL (0.2-1.0)
== END ==
LOC: M SFHCPLAZ 11:36
PROVIDERS: ATTEND Internal Medicine Infectious Disease
DX: B18.2 Chronic viral hepatitis C (principal)

== ENCOUNTER → 2016-10-10 | Outpatient (CLI) | payer OTHER ==
--- NOTE | 2016-10-10 08:59 | REP ---
Right upper quadrant sonography: History: Hepatitis C, chronic. The Comparison study: Comparison sonography September 30, 2016. Findings: Scanning through the right upper quadrant of the abdomen demonstrates a normal sized, thin-walled gallbladder without evidence of stone or polyp. Common bile duct is normal measuring 0.2 cm in greatest diameter. No focal liver lesion is seen. Liver size is normal. No pancreatic abnormality is observed. No right renal abnormality is seen. There is no evidence of ascites. The right kidney measures 10.7 x 5.3 x 4.5 cm. Impression: Negative right upper quadrant sonography. No change from the study done September 30, 2016. Signed by Alli Pires MD 10/10/2016 08:50 A
== END ==
LOC: M RAD 08:18
PROVIDERS: ATTEND Internal Medicine Infectious Disease
DX: B18.2 Chronic viral hepatitis C (principal)

== ENCOUNTER → 2016-10-15 | Outpatient (CLI) | payer OTHER ==
--- NOTE | 2016-10-15 11:32 | REP ---
Hepatobiliary scan and gallbladder ejection fraction: History: Right upper quadrant pain. Technique: 6.2 mCi of technetium-99m mebrofenin was injected and sequential anterior images are acquired. 65 minutes after the mebrofenin injection, the patient consumed 8 ounces Ensure and an additional 60 minutes of imaging was acquired. Regions of interest are plotted around the gallbladder. Findings: The initial hepatocellular parenchymal uptake phase is normal and homogeneous. Intra- and extra-hepatic bile ducts and duodenum are labeled by the 10 -minute image. The gallbladder is first labeled on the 10 -minute image. There is normal washout from the liver parenchyma into the gallbladder and small intestine on subsequent images. The gallbladder ejection fraction is normal at 47 %. Values greater than 35 % are considered normal with this technique. Impression: Normal hepatobiliary scan and gallbladder ejection fraction. Signed by Alli Pires MD 10/15/2016 11:24 A
== END ==
LOC: M RAD 08:31
PROVIDERS: ATTEND Nurse Practitioner Family
DX: R10.11 Right upper quadrant pain (principal)

== ENCOUNTER 2016-11-19 21:15 | Emergency (ER) | payer OTHER ==
[~2016-11-19] VITALS: Ht 167.6 cm; Wt 89.4 kg
[2016-11-19] MEDS ORDERED: BUPR200T PO (21:41)
[2016-11-19] MEDS ORDERED: EQ O20TA4 PO (21:41)
[2016-11-20 00:15] VITALS: BP 122/71
== END 2016-11-20 00:17 | disposition home or self-care (01) ==
LOC: M ED 22:23
DX: R21 Rash and other nonspecific skin eruption (principal); K21.9 Gastro-esophageal reflux disease without esophagitis; F99 Mental disorder, not otherwise specified; Z79.899 Other long term (current) drug therapy

== ENCOUNTER 2016-11-21 14:46 | Emergency (ER) | payer OTHER ==
[~2016-11-21] VITALS: Ht 167.6 cm; Wt 90.7 kg
[~2016-11-21 14:46] MED LIST: BUPR200T PO; EQ O20TA4 PO
[2016-11-21] MEDS ORDERED: NS 500 ML IV ONE (16:00)
[2016-11-21] MEDS ORDERED: ONDANSETRON 4MG/2ML VIAL (J2405) IV ONE (16:00)
[2016-11-21] MEDS ORDERED: KETOROLAC 30 MG/ML VIAL (J1885) IV ONE (16:00)
[2016-11-21 16:25] LABS: BASO % 0.4 % (0.0-1.0); EOS # 0.2 K/mm3 (0.0-0.50); EOS % 2.9 % (0.0-3.0); LARGE UNSTAINED CELL # 0.1 K/mm3 (0.0-0.4); LARGE UNSTAINED CELL % 1.8 % (0.0-4.0); LYMPH # 1.9 K/mm3 (1.5-6.5); LYMPH % 25.1 % (24.0-44.0); MEAN CORPUSCULAR HEMOGLOBIN 26.4 pg (27.0-33.0); MEAN CORPUSCULAR VOLUME 82.5 fl (80.0-96.0); MONO # 0.5 K/mm3 (0.0-0.8); MONO % 6.7 % (0.0-5.0); NEUTROPHILS # 4.4 K/mm3 (1.8-7.7); NEUTROPHILS % 63.1 % (36.0-66.0); PLATELET COUNT, AUTOMATED 210 k/mm3 (150-450); RED CELL DISTRIBUTION WIDTH 13.5 % (11.5-14.5)
[2016-11-21] MEDS ORDERED: GASTROGRAFIN SOLUTION 30ML (Q9963) As Ordered ONE (16:41)
[2016-11-21 16:50] LABS: ALBUMIN 3.6 GM/DL (3.2-5.2); ALKALINE PHOSPHATASE 83 U/L (45-117); ALT/SGPT 19 U/L (12-78); AMYLASE 61 U/L (25-115); ANION GAP 10 MEQ/L (8-16); AST/SGOT 26 U/L (15-37); BILIRUBIN,DIRECT < 0.1 MG/DL (0.0-0.2); BILIRUBIN,TOTAL 0.3 MG/DL (0.2-1.0); BLOOD UREA NITROGEN 10 MG/DL (7-18); CALCIUM LEVEL 8.8 MG/DL (8.5-10.1); CARBON DIOXIDE LEVEL 24 MEQ/L (21-32); CHLORIDE LEVEL 108 MEQ/L (98-107); CREATININE FOR GFR 0.88 MG/DL (0.55-1.02); GLOMERULAR FILTRATION RATE > 60.0 (>60); GLUCOSE, FASTING 102 MG/DL (70-105); POTASSIUM SERUM 4.8 MEQ/L (3.5-5.1); SODIUM LEVEL 142 MEQ/L (136-145); TOTAL PROTEIN 7.6 GM/DL (6.4-8.2)
[2016-11-21] MEDS ORDERED: GASTROGRAFIN SOLUTION 30ML (Q9963) PO ONE ×2 (17:00→17:20)
[2016-11-21] MEDS ORDERED: ISOVUE-370 76% 100ML VIAL (Q9967) As Ordered ONE (18:04)
--- NOTE | 2016-11-21 18:29 | REP ---
Chest x-ray: Two views: History: Left lower quadrant pain. Findings: The lungs are well inflated and clear. Pleural angles are sharp. Heart size is normal. Pulmonary vasculature is not increased. No significant bony abnormality is seen. Impression: Negative chest x-ray. Signed by Alli Pires MD 11/22/2016 12:25 P
[2016-11-21 19:07] VITALS: BP 109/59
--- NOTE | 2016-11-21 19:21 | REP ---
CT ABDOMEN AND PELVIS: REASON FOR EXAM: Left upper quadrant pain. COMPARISON CT: None. CONTRAST: 100 mL [id number]. A few subsegmental atelectatic changes are seen in the lung bases. There are no pleural or pericardiac effusions. The gallbladder is contracted but otherwise unremarkable in appearance. The liver, spleen, pancreas, adrenal glands, and kidneys are within normal limits with the exception of the small cortical irregularity seen in the interpolar region of the left kidney posteriorly likely representing a small renal scar. The abdominal aorta and paraaortic regions are within normal limits. The bowel loops and their mesenteries are within normal limits. The appendix is well visualized and is unremarkable. There is no free fluid or free air in the abdomen. There is no evidence of an intraabdominal mass or adenopathy. CT PELVIS: The bowel loops and their mesenteries are within normal limits. There is no evidence of a pelvic mass or adenopathy. There is no evidence of free pelvic fluid or air. Bone window technique throughout the exam shows the osseous structures to be within normal limits for the patient's age. IMPRESSION: There is no evidence of acute intraabdominal or intrapelvic disease. Findings as described above. Signed by Kenneth Jones DO 11/21/2016 07:30 P
== END 2016-11-21 19:32 | disposition home or self-care (01) ==
LOC: M ED 15:37
DX: R10.12 Left upper quadrant pain (principal); K21.9 Gastro-esophageal reflux disease without esophagitis; Z79.899 Other long term (current) drug therapy

== ENCOUNTER 2016-11-24 18:28 | Emergency (ER) | payer OTHER ==
[~2016-11-24] VITALS: Ht 165.1 cm; Wt 88.5 kg
[~2016-11-24 18:28] MED LIST changes: -APRITAB PO; -ISOVUE-370 76% 100ML VIAL (Q9967) As Ordered ONE
[2016-11-24 18:29] VITALS: BP 142/67
[2016-11-24] MEDS ORDERED: APRITAB PO (18:53)
[2016-11-24] MEDS ORDERED: ISOVUE-370 76% 100ML VIAL (Q9967) As Ordered ONE (22:15)
[2016-11-24 23:04] LABS: ANION GAP 6 MEQ/L (8-16); BLOOD UREA NITROGEN 12 MG/DL (7-18); CALCIUM LEVEL 8.1 MG/DL (8.5-10.1); CARBON DIOXIDE LEVEL 29 MEQ/L (21-32); CHLORIDE LEVEL 104 MEQ/L (98-107); CREATININE FOR GFR 0.77 MG/DL (0.55-1.02); GLOMERULAR FILTRATION RATE > 60.0 (>60); GLUCOSE, FASTING 87 MG/DL (70-105); POTASSIUM SERUM 3.7 MEQ/L (3.5-5.1); SODIUM LEVEL 139 MEQ/L (136-145)
--- NOTE | 2016-11-24 23:20 | REPUSA ---
History: shortness of breath Comparison: No prior CTA of the chest available Technique: A CT-pulmonary angiogram was performed. A dose of intravenous contrast was administered. A xial images were displayed, as were sagittal and coronal reconstructions. A 3-D model was also render ed. Exam DLP: Findings: No CT evidence of pulmonary embolism is identified. There is no evidence of thoracic aortic aneurysm or dissection. No air space consolidation is identified in the lungs. There is no evidence of pulmonary edema. No pa thologically enlarged hilar or mediastinal lymph nodes are identified. No significant pleural or shayla cardial fluid collection is seen. There is no evidence of pneumothorax. The included portion of the upper abdomen show 15x 10 mm hepatic dome hypervascular nodule may repre sent a flash-filling hemantioma. Impression: No evidence of pulmonary embolism is identified. 15x 10 mm hepatic dome hypervascular nodule may represent a flash-filling hemantioma. Consider short term follow up study.
--- NOTE | 2016-11-25 01:10 | REPUSA ---
CLINICAL HISTORY: Edema. COMMENTS: Real time sonography with duplex doppler of the extremities bilaterally was performed with attention to the major deep venous structures. Evaluation reveals the common femoral, superficial femoral and popliteal veins bilaterally to be comp letely compressible without intraluminal thrombus. There is normal spontaneous phasic flow and augmen tation in all deep veins. The greater saphenous/common femoral vein junctions are patent bilaterally. IMPRESSION: No evidence of DVT in the lower extremities bilaterally. Thank you for your kind referral of this patient.
--- NOTE | 2016-11-25 11:30 | ED PDOC ---
Provider Note radiology report faxed to Nelly Yanes MD Nov 25, 2016 11:29
== END 2016-11-25 01:53 | disposition home or self-care (01) ==
LOC: M ED 19:37
DX: R79.1 Abnormal coagulation profile (principal); Z87.891 Personal history of nicotine dependence; Z79.899 Other long term (current) drug therapy

== ENCOUNTER → 2016-11-24 | Outpatient (CLI) | payer OTHER ==
[~2016-11-24] MED LIST changes: +APRITAB PO; +ISOVUE-370 76% 100ML VIAL (Q9967) As Ordered ONE
== END ==
LOC: M RAD 17:26
PROVIDERS: ATTEND Nurse Practitioner Family
DX: R07.9 Chest pain, unspecified (principal); R79.1 Abnormal coagulation profile